=== PATIENT | female | born 1995 | race Caucasian/White ===

== ENCOUNTER 2017-11-23 04:57 | Emergency (ER) | payer BC ==
[~2017-11-23] VITALS: Ht 165.1 cm; Wt 59.0 kg
[~2017-11-23 04:57] MED LIST: KEPPRA500 MG PO
--- OUTSIDE RECORDS SUMMARY | 2017-11-23 05:00 | XMS REPORT | Clinical Summary ---
Author Author [facility] Organization [facility] Address Unknown Phone Unavailable Care Team Providers Care Sound Installation Worker Name Role Phone Benja Carpenter MD PCP Allergies Active Allergy Reactions Severity Noted Date Comments No Known Drug Allergies 08/12/2017 Current Medications Prescription Sig. Disp. Refills Start End Date Status Date iron,carbon,[id number]-C Take 1 tablet by mouth Active -dss (FERRALET 90 daily. DUAL-IRON DELIVERY) 90-1-12-50 by-bo-ykm-mg tablet LEVETIRACETAM (KEPPRA Take by mouth. Active ORAL) VIT Take 800 mcg by mouth. Active 75/IRON/FOLIC/OM3 (ONE A DAY WOMEN'S DHA ORAL) HYDROcodone-acetaminophen TAKE ONE (1) TABLET(S) BY 0 09/16/20 Active (NORCO) 5-325 mg per MOUTH EVERY SIX HOURS 17 tablet NEEDED FOR PAIN. norethindrone (MICRONOR) Take 1 tablet (0.35 mg 28 tablet 4 10/27/19 10/27/19 Active 0.35 mg total) by mouth daily. 18 19 tabletIndications: Encounter for surveillance of contraceptive pills ibuprofen (ADVIL,MOTRIN) Take 1 tablet (600 mg 20 tablet 0 09/16/20 10/16/19 600 MG tablet total) by mouth every 6 17 18 (six) hours as needed for mild pain (Cramping, Laceration or Incision Pain) for up to 30 days. Active Problems Problem Noted Date 09/13/2017 Encounters Date Type Specialty Care Team Description 10/27/2017 Obstetrics and Gynecology June Odom MD Encounter for Visit surveillance of contraceptive pills (Primary Dx); care and examination 09/29/2017 Obstetrics and Gynecology June Odom MD care and Visit examination (Primary Dx) 09/13/2017 Hospital Obstetrics and Gynecology June Odom MD 40 weeks gestation of - Encounter (Primary Dx) 09/16/2017 09/13/2017 Anesthesia Obstetrics and Gynecology Freddy Rosenbaum MD Event 09/06/2017 Abstract Obstetrics and Gynecology June Odom MD 08/12/2017 Abstract Obstetrics and Gynecology Lupe Quinonez RN 08/06/2017 Transcribe Physical Therapy Keshawn Hartley MD Right hand pain (Primary Orders Dx); Left hand pain after 11/22/2016 Family History Medical History Relation Name Comments Other Father intestinal problems Diabetes Maternal Aunt Hypertension Maternal Grandfather Lung cancer Maternal Grandfather Pancreatic cancer Maternal Grandfather Hypertension Mother Cervical cancer Other maternal great GM Other Paternal intestinal problems Grandfather Relation Name Status Comments Father Maternal Aunt Maternal Grandfather Mother Other maternal great GM Paternal Grandfather Social History Tobacco Use Types Packs/Day Years Used Date Never Smoker Smokeless Tobacco: Never Used Alcohol Use Drinks/Week oz/Week Comments No Sex Assigned at Date Recorded Not on file Last Filed Vital Signs Vital Sign Reading Time Taken Blood Pressure 129/80 10/27/2017 9:23 AM [facility] Pulse 87 10/27/2017 9:23 AM [facility] Temperature 37.1 C (98.7 F) 10/27/2017 9:23 AM [facility] Respiratory Rate 16 09/16/2017 7:26 AM [facility] Oxygen Saturation - - Inhaled Oxygen - - Concentration Weight 58.5 kg (129 lb) 09/29/2017 11:11 AM [facility] Height 165.1 cm (5' 5") 09/29/2017 11:11 AM [facility] Body Mass Index 21.47 09/29/2017 11:11 AM [facility] Plan of Treatment Health Maintenance Due Date Last Done Comments PAP SMEAR 2014 INFLUENZA VACCINE 05/13/2017 Procedures Procedure Name Priority Date/Time Associated Diagnosis Comments ANESTHESIA EPIDURAL BLOCK Routine 09/13/2017 11:32 PM [facility] Procedure Note - Freddy Rosenbaum MD - 09/13/2017 11:30 PM [facility] Epidural Block Performed by: FREDDY ROSENBAUM Authorized by: FREDDY ROSENBAUM Patient Location: OB Start Time: 09/13/2017 11:00 PM End Time: 09/13/2017 11:30 PM Reason for Block: labor epidural Anesthesio logist: FREDDY ROSENBAUM Performed by: Anesthesio logist Preprocedu re: patient identified , IV checked, site and side verified, risks and benefits discussed, procedure verified, surgical consent completed, patient position confirmed, monitors and equipment checked and pre-op evaluation completed Patient Position: Right lateral decubitus Prep: ChloraPrep Monitoring : Blood pressure monitoring , continuous pulse oximetry and heart rate Approach: Midline Interspace : L4-5 Injection Technique: HARJINDER air Needle Type: Tuohy Needle Gauge: 17 Loss of resistance : 5 cm Catheter at Skin Depth: 7 cm Test Dose: Lidocaine 1.5% with epinephrin e 1-to-200,0 00 Number of Attempts: 1 Pump program started: pain pump Block Outcome: No apparent complicati ons, patient comfortabl e and patient tolerated procedure well Post-proce dure: Patient returned to supine position with left lateral displaceme nt and sterile dressing applied Events: paresthesi a Events comment: Left side no persistenc e Time: 09/13/2017 11:00 PM Pump program changed: pain pump after 11/22/2016 Results * CBC with platelet and differential (09/15/2017 4:10 AM) Only the most recent of 2 results within the time period is included. Component Value Ref Range WBC 17.95 (H) 4.50 - 11.00 k/uL RBC 3.27 (L) 4.20 - 5.50 m/uL HGB 8.9 (L) 12.0 - 16.0 g/dL HCT 27.6 (L) 37.0 - 47.0 % MCV 84.4 82.0 - 100.0 fL MCH 27.2 27.0 - 34.0 pg MCHC 32.2 31.0 - 37.0 g/dL RDW - SD 46.5 37.0 - 55.0 fL MPV 11.9 8.8 - 13.2 fL Platelet count 185 150 - 400 k/uL Nucleated RBC 0.00 /100 WBC Neutrophils 69.7 (H) 39.0 - 69.0 % Lymphocytes 22.3 (L) 25.0 - 45.0 % Monocytes 6.7 0.0 - 10.0 % Eosinophils 0.4 0.0 - 5.0 % Basophils 0.4 0.0 - 1.0 % Immature granulocytes 0.5Comment: "Immature granulocytes" 0.0 - 1.0 % (promyelocytes, myelocytes, metamyelocytes) Specimen Performing Laboratory Blood [facility] DEPARTMENT OF PATHOLOGY AND [address] [place] [address] * Surgical pathology request (09/14/2017 7:24 AM) Component Value Ref Range Surgical pathology report See link below for PDF Lab Report Result status This is Final Report to [id number] Specimen Performing Laboratory [facility] DEPARTMENT PATHOLOGY AND [address] [place] [address] * Urine drugs of abuse screen (09/14/2017 12:55 AM) Component Value Ref Range Amphetamine screen, urine Negative Methamphetamine screen, Negative urine Barbiturate screen, urine Negative Benzodiazepine screen, Negative urine Cocaine screen, urine Negative Methadone screen, urine Negative Opiates screen, urine Negative Phencyclidine screen, Negative urine Cannabinoid screen, urine Negative Tricyclic screen, urine Negative Comment: Drug screen minimum concentration of detectability Amphetamines 1000 ng/mL Methamphetamines 1000 ng/mL Barbiturates 300 ng/mL Benzodiazepines 300 ng/mL Cocaine 300 ng/mL Methadone 3 00 ng/mL Opiates 300 ng/mL Phencyclidine 25 ng/mL Cannabinoids 50 ng/mL Tricyclics 1000 ng/mL Negative test results indicates presumptive evidence of lack of clinically significant drug concentration in this urine specimen. Positive test results are presumptive evidence of clinically significant drug concentration in this urine specimen. Testing performed for medical purposes only. Specimen Performing Laboratory Urine [facility] DEPARTMENT PATHOLOGY AND [address] [place] [address] * Urinalysis screen and microscopy, with reflex to culture (09/13/2017 10:05 PM) Component Value Ref Range Specimen site Clean catch Color, UA Yellow Appearance, UA Clear Specific gravity, UA 1.010 1.001 - 1.035 pH, UA 7.0 5.0 - 8.5 Protein, UA 2+ (A) Negative Glucose, UA Negative Negative Ketones, UA 1+ (A) Negative Bilirubin, UA Negative Negative Blood, UA Negative Negative Nitrite, UA Negative Negative Urobilinogen, UA Negative <2.0 Leukocyte esterase, UA Trace (A) Negative Epithelial cells, UA Many /HPF Round epithelial cells, Few 0 - 1 /HPF UA WBC, UA 0-5 0 - 4 /HPF RBC, UA 0-5 0 - 2 /HPF Bacteria, UA Trace None seen Yeast, UA None seen Yeast with pseudohyphae, None seen UA Specimen Performing Laboratory Urine [facility] DEPARTMENT OF PATHOLOGY AND GENOMIC MEDICINE [address] [place] [address] * Gram stain (09/13/2017 10:05 PM) Component Value Ref Range Gram stain result No WBC's or organisms seen. Comment: Specimen Information Specimen Source: Urine Specimen Site: See UA Specimen Performing Laboratory Urine [facility] DEPARTMENT OF PATHOLOGY AND [address] [address] * Urine culture (09/13/2017 10:05 PM) Component Value Ref Range Urine culture isolate Streptococcus group B colony count undetermined, probably due to inhibiting substance. (A) Comment: Specimen Information Specimen Source: Urine Specimen Site: See UA Urine culture isolate Mixed Gram positive ray colony count undetermined, probably due to inhibiting substance. (A) Specimen Performing Laboratory Urine [facility] DEPARTMENT OF PATHOLOGY AND [address] [address] * Syphilis treponemal IgG (09/13/2017 8:50 PM) Component Value Ref Range Syphilis treponemal IgG Non-reactiveComment: Non-reactive: No serological Non-reactive evidence of Syphilis infection Specimen Performing Laboratory Serum [facility] [address] [address] * Rubella Ab IgG (09/13/2017 8:50 PM) Component Value Ref Range Rubella IgG antibody Positive Negative Comment: IgG antibody levels are at a level that are considered to indicate positive immunity Specimen Performing Laboratory Serum [facility] [address] [address] * HIV 1, 2 antibody (09/13/2017 8:50 PM) Component Value Ref Range HIV 1, 2 antibody Nonreactive Non-reactive Comment: Starting from January 09 2016, 4th generation HIV screening and confirmation assays are in use at [facility], consistent with the CDC-recommended algorithm. The screening test detects antibodies to HIV-1, HIV-2 and the p24 antigen. Positive screening results will be automatically reflexed to a HIV-1/HIV-2 differentiation assay. Indeterminant HIV-1 results will be further automatically reflexed to a nucleic acid test for detection of acute infection. Western blot will no longer be performed as a confirmation test. For a quick reference guide on the testing algorithm, please refer to: http://stacks.cdc.gov/view/cdc/91574. Specimen Performing Laboratory Blood [facility] DEPARTMENT OF PATHOLOGY AND GENOMIC [facility] [address] [place] [address] * Hepatitis B surface antigen (09/13/2017 8:50 PM) Component Value Ref Range Hepatitis B surface Ag Nonreactive Non-reactive Specimen Performing Laboratory Blood [facility] DEPARTMENT OF PATHOLOGY AND GENOMIC [facility] [address] [place] [address] * Type and screen (09/13/2017 8:50 PM) Component Value Ref Range ABO grouping A Rh type POS Antibody screen NEG Specimen Performing Laboratory Blood [facility] DEPARTMENT OF PATHOLOGY AND GENOMIC [facility] [address] [place] [address] after 11/22/2016 Insurance Payer Benefit Subscriber ID Type Phone Address Plan / Group BCBS BCBS OUT xxxxxxxxxxxxxxx PPO OF STATE
[2017-11-23] MEDS ORDERED: SODIUM CHLORIDE 0.9% 1000ML 1,000 ML IV STA (05:13)
[2017-11-23] MEDS ORDERED: BIRTH CONTROL PO (05:21)
[2017-11-23 05:28] LABS: BASOPHILS # (AUTO) 0.1 (0.0-0.1); BASOPHILS % 0.7 % (0.0-1.0); EOSINOPHILS # (AUTO) 0.1 (0.0-0.4); EOSINOPHILS % 1.5 % (0.0-6.0); HEMATOCRIT 40.3 % (34.2-44.1); HEMOGLOBIN 12.4 g/dL (12.0-16.0); LYMPHOCYTES # (AUTO) 3.7 (1.0-3.2); LYMPHOCYTES % 49.5 % (18.0-39.1); MEAN CORPUSCULAR HEMOGLOBIN 27.4 pg (28-32); MEAN CORPUSCULAR HGB CONC 30.8 g/dL (31-35); MONOCYTES # (AUTO) 0.4 (0.2-0.8); MONOCYTES % 5.3 % (4.4-11.3); NEUTROPHILS # (AUTO) 3.2 (2.1-6.9); NEUTROPHILS % 42.6 % (38.7-80.0); PLATELET COUNT 310 x10e3/uL (140-360); RED BLOOD COUNT 4.53 x10e6/uL (3.6-5.1); RED CELL DISTRIBUTION WIDTH 13.8 % (11.7-14.4)
[2017-11-23] MEDS ORDERED: LEVETIRACETAM 500MG/5ML VIAL 500 MG in SODIUM CHLORIDE 0.9% 100 ML 100 ML IV SCH (05:30)
[2017-11-23 05:31] LABS: AMPHETAMINES SCREEN,URINE NEGATIVE (NEGATIVE); BENZODIAZEPINES SCREEN,URINE NEGATIVE (NEGATIVE); BILIRUBIN,URINE NEGATIVE (NEGATIVE); CLARITY,URINE CLOUDY (CLEAR); COLOR,URINE YELLOW (YELLOW); KETONES,URINE NEGATIVE (NEGATIVE); LEUKOCYTE ESTERASE ,URINE 2+ (NEGATIVE); NITRITE,URINE NEGATIVE (NEGATIVE); PHENCYCLIDINE SCREEN,URINE NEGATIVE (NEGATIVE); PREGNANCY TEST, URINE NEGATIVE (NEGATIVE); URINE UROBILINOGEN 0.2 mg/dL (0.2 - 1)
[2017-11-23 05:32] LABS: PROTEIN,URINE DIPSTICK 1+ (NEGATIVE)
[2017-11-23 05:41] LABS: BACTERIA,URINE MANY /HPF; EPITHELIAL CELLS,URINE MODERATE /LPF; WBC,URINE (MAN) 21-50 /HPF (0-5)
[2017-11-23 05:43] LABS: INR 1.11; PROTHROMBIN TIME 13.5 seconds (11.9-14.5)
[2017-11-23 05:44] LABS: PARTIAL THROMBOPLASTIN TIME 28.6 seconds (23.8-35.5)
[2017-11-23 05:46] LABS: ALANINE AMINOTRANSFERASE 10 IU/L (0-55); ALBUMIN 4.7 g/dL (3.5-5.0); ALBUMIN/GLOBULIN RATIO 1.2 (0.8-2.0); ALKALINE PHOSPHATASE 82 IU/L (40-150); ANION GAP 13.6 mmol/L (8-16); BLOOD UREA NITROGEN 8 mg/dL (7-26); BUN/CREATININE RATIO 9 (6-25); CALCIUM 9.1 mg/dL (8.4-10.2); CARBON DIOXIDE 20 mmol/L (22-29); CHLORIDE 112 mmol/L (98-107); CREATINE KINASE 125 IU/L (29-168); CREATININE, SERUM 0.85 mg/dL (0.57-1.11); EST GLOMERULAR FILTRATION RATE > 60 ML/MIN (60-); GLUCOSE 88 mg/dL (74-118); MAGNESIUM 2.3 MG/DL (1.3-2.1); POTASSIUM 3.6 mmol/L (3.5-5.1); SODIUM 142 mmol/L (136-145)
[2017-11-23] MEDS ORDERED: LEVETIRACETAM 500 MG/5 ML VIAL IV ONE ×2 (05:46→06:17)
[2017-11-23] MEDS ORDERED: SODIUM CHLORIDE 0.9% 250ML 250 ML ONE (05:47)
[2017-11-23] MEDS: LEVETIRACETAM 500MG/5ML VIAL 500 MG in SODIUM CHLORIDE 0.9% 100 ML 100 ML IV SCH ×2 (05:48→06:56)
[2017-11-23] MEDS ORDERED: CEFTRIAXONE SOD 1 GM VIAL IV STA (05:53)
[2017-11-23 06:06] LABS: THYROID STIMULATING HORMONE 5.518 uIU/mL (0.350-4.940)
--- NOTE | 2017-11-23 06:08 | Diagnostic Imaging Report ---
History: Seizure Comparison studies: None Technique: Axial images were obtained from the skull base to the vertex. Coronal and sagittal reconstructions obtained from the axial data. Findings: Scalp/skull: No abnormalities. No fractures, blastic or lytic lesions. Extra-axial spaces: No masses. No fluid collections. Brain sulci: Appropriate for age. Ventricles: Normal in size and configuration. No hydrocephalus. Parenchyma: No abnormal densities. No masses, hemorrhage, acute or chronic cortical vascular insults. Sellar/suprasellar region: No abnormalities Craniocervical junction: Patent foramen magnum. No Chiari one malformation. IMPRESSION: No abnormalities. Signed by: Dr. Jluis Casillas M.D. on 11/23/2017 6:04 AM
--- NOTE | 2017-11-23 06:09 | Diagnostic Imaging Report ---
History: Seizure Comparison studies: None Technique: Axial images were obtained through the cervical region.. Coronal and sagittal images reconstructed from the axial data.. Intravenous contrast: None Findings: Airway: Patent. Fractures: None. Soft tissues: No gross abnormalities. Atlantoaxial articulation: Intact. Alignment: Normal lordosis. No scoliosis. Cervicomedullary junction: No abnormalities. The foramen magnum is patent. Vertebrae: No infection or neoplasm. Degenerative changes: None. IMPRESSION: 1. No abnormalities. 2. Cannot adequately evaluate for ligament, spinal cord and or vascular abnormalities. Signed by: Dr. Jluis Casillas M.D. on 11/23/2017 6:05 AM
--- NOTE | 2017-11-23 06:09 | Diagnostic Imaging Report ---
EXAMINATION: CHEST SINGLE (PORTABLE) INDICATION: Seizure. COMPARISON: None FINDINGS: TUBES and LINES: None. LUNGS: Lungs are well inflated. Lungs are clear. There is no evidence of pneumonia or pulmonary edema. PLEURA: No pleural effusion or pneumothorax. HEART AND MEDIASTINUM: The cardiomediastinal silhouette is unremarkable. BONES AND SOFT TISSUES: No acute osseous lesion. Soft tissues are unremarkable. UPPER ABDOMEN: No free air under the diaphragm. IMPRESSION: No acute thoracic abnormality. Signed by: Dr. Sergey Davis M.D. on 11/23/2017 6:06 AM
--- NOTE | 2017-11-23 06:11 | Diagnostic Imaging Report ---
History:Seizure Comparison studies: None Technique: Axial images were obtained through the maxillofacial region. Coronal and sagittal images reconstructed from the axial data. Intravenous contrast: None Findings: Soft tissues: No abnormalities. Bones: No fractures or bone abnormalities. Orbits: Globes: Intact Extra or intraconal abnormalities: None. Paranasal sinuses: Clear IMPRESSION: No abnormalities. Signed by: Dr. Jluis Casillas M.D. on 11/23/2017 6:07 AM
[2017-11-23 06:37] LABS: ACETAMINOPHEN < 3 ug/mL (10-30)
[2017-11-23 07:08] VITALS: BP 135/54
== END 2017-11-23 07:09 | disposition home or self-care (01) ==
LOC: ER 04:57
DX: G40.309 Generalized idiopathic epilepsy and epileptic syndromes, not intractable, without status epilepticus (principal); S00.83XA Contusion of other part of head, initial encounter; S00.12XA Contusion of left eyelid and periocular area, initial encounter; S40.011A Contusion of right shoulder, initial encounter; W18.39XA Other fall on same level, initial encounter; Y92.008 Other place in unspecified non-institutional (private) residence as the place of occurrence of the external cause
CPT/HCPCS: 36415; 70450; 70486; 71045; 72125; 80053; 80307; 80320; 80329; 81001; 81025; 82550; 82553; 83735; 84443; 84484; 85025; 85610; 85730; 87086; 93005; 99284; J0696; J7030; J7050

== ENCOUNTER 2021-12-21 16:40 | Emergency (ER) | payer BC, OTHER ==
[~2021-12-21] VITALS: Ht 165.1 cm; Wt 59.0 kg
[~2021-12-21 16:40] MED LIST changes: +BIRTH CONTROL PO
[2021-12-21] MEDS ORDERED: METHOCARBAMOL 750 MG TAB PO ONE (17:00)
[2021-12-21] MEDS ORDERED: HYDROCODONE/APAP 5MG-325MG TAB PO PRN (17:00)
[2021-12-21] MEDS ORDERED: MOTRIN800 MG PO (17:54)
[2021-12-21] MEDS ORDERED: METHOCARBAMOL750 MG PO (17:54)
[2021-12-21] MEDS ORDERED: PREDNISONE50 MG PO (17:54)
== END 2021-12-21 18:29 | disposition home or self-care (01) ==
LOC: ER 16:49
DX: M54.2 Cervicalgia (principal); R20.0 Anesthesia of skin; V43.62XA Car passenger injured in collision with other type car in traffic accident, initial encounter; Y92.488 Other paved roadways as the place of occurrence of the external cause
CPT/HCPCS: 70450; 72125; 99283

== ENCOUNTER 2022-03-28 09:41 | Emergency (ER) | payer BC, OTHER ==
[~2022-03-28] VITALS: Ht 165.1 cm; Wt 56.7 kg
[~2022-03-28 09:41] MED LIST changes: +METHOCARBAMOL750 MG PO; +MOTRIN800 MG PO; +PREDNISONE50 MG PO
[2022-03-28] MEDS ORDERED: ACETAMINOPHEN-1 EAC4 PO (10:04)
[2022-03-28] MEDS ORDERED: IBUPROFEN200 MG PO (10:04)
== END 2022-03-28 11:20 | disposition home or self-care (01) ==
LOC: FSED 09:56
DX: S42.91XA Fracture of right shoulder girdle, part unspecified, initial encounter for closed fracture (principal); W06.XXXA Fall from bed, initial encounter; Y93.84 Activity, sleeping; Y92.003 Bedroom of unspecified non-institutional (private) residence as the place of occurrence of the external cause
CPT/HCPCS: 99283